=== PATIENT | female | born 2000 | race Two or more races ===

== ENCOUNTER 2021-05-25 20:15 | Observation (INO) | payer OTHER ==
[~2021-05-25] VITALS: Ht 154.9 cm; Wt 49.0 kg
== END 2021-05-25 22:00 | disposition home or self-care (01) ==
LOC: MLD 20:15
PROVIDERS: ADMIT Obstetrics & Gynecology; ATTEND Obstetrics & Gynecology
DX: O26.893 Other specified pregnancy related conditions, third trimester (principal); R10.9 Unspecified abdominal pain; Z3A.32 32 weeks gestation of pregnancy
CPT/HCPCS: G0378

== ENCOUNTER 2021-06-22 08:10 | Inpatient (IN) | payer OTHER ==
[~2021-06-22] VITALS: Ht 154.9 cm; Wt 49.9 kg
[2021-06-22 08:26] VITALS: BP 121/71
[2021-06-22] MEDS ORDERED: BETAMETH ACET/BETAMETH NA PH 30 MG/5 ML VIAL IM SCH (09:10)
[2021-06-22] MEDS ORDERED: PNV1TABL5 PO (09:16)
[2021-06-22] MEDS ORDERED: BETAMETH ACET/BETAMETH NA PH 30 MG/5 ML VIAL IM ONE (09:20)
[2021-06-22 09:46] LABS: BASOPHILS % (AUTO) 0.4 % (0.0-2.0); EOSINOPHILS % (AUTO) 0.6 % (0.0-4.0); HEMATOCRIT 31.9 % (36-48); HEMOGLOBIN 10.3 g/dL (12.0-16.0); LYMPHOCYTES # (AUTO) 1.1 K/uL (2.5-16.5); LYMPHOCYTES % (AUTO) 14.9 % (20.5-51.1); MEAN CORPUSCULAR HEMOGLOBIN 25 pg (27-31); MEAN CORPUSCULAR HGB CONC 32 g/dL (33-37); MEAN CORPUSCULAR VOLUME 77.7 fL (80-94); MONOCYTES # (AUTO) 0.6 K/uL (0.8-1.0); MONOCYTES % (AUTO) 7.2 % (1.7-9.3); NEUTROPHILS # (AUTO) 5.9 K/uL (1.8-7.7); NEUTROPHILS % (AUTO) 76.9 % (42.2-75.2); PLATELET COUNT (AUTO) 233 K/uL (140-450); RED BLOOD CELL COUNT(AUTO) 4.11 MIL/uL (4.20-5.40); RED CELL DISTRIBUTION WIDTH 14.4 % (11.6-13.7); WHITE BLOOD COUNT (AUTO) 7.7 K/uL (4.5-11.0)
[2021-06-22] MEDS ORDERED: LACTATED RINGERS 1,000 ML IV SCH (10:20)
[2021-06-22 10:22] LABS: POTASSIUM 3.6 mmol/L (3.5-5.1)
[2021-06-22 10:23] LABS: ANION GAP 11.8 (8-16); CARBON DIOXIDE 23.8 mmol/L (21-32)
[2021-06-22 10:24] LABS: CREATININE 0.4 mg/dL (0.6-1.3); TOTAL BILIRUBIN 0.7 mg/dL (0.0-1.0)
[2021-06-22 10:25] LABS: ALBUMIN 2.6 g/dL (3.4-5.0)
[2021-06-22 10:53] LABS: APPEARANCE,URINE CLEAR (CLEAR); BILIRUBIN,URINE NEGATIVE (NEGATIVE); BLOOD, URINE NEGATIVE (NEGATIVE); COLOR,URINE YELLOW (YELLOW); LEUKOCYTE ESTERASE ,URINE NEGATIVE (NEGATIVE); NITRITE, URINE NEGATIVE (NEGATIVE); PH,URINE 6.5 (5.0-9.0); UGLUCOSE NEGATIVE (NEGATIVE)
--- NOTE | 2021-06-22 12:57 | NUR ---
PATIENT HAS BEEN SCREENED AND CATEGORIZED LOW NUTRITION RISK. PATIENT WILL BE SEEN WITHIN 7 DAYS OF ADMISSION. 06/28/[address]
[2021-06-22 15:35] LABS: BARBITURATE, URINE NEGATIVE ng/ml (NEG <=200); BENZODIAZEPINE, URINE NEGATIVE ng/mL (NEG <=200); CANNABINOID, URINE NEGATIVE ng/mL (NEG <=50); COCAINE, URINE NEGATIVE ng/mL (NEG <=300); OPIATE, URINE NEGATIVE ng/mL (NEG <=2000); PHENCYCLIDINE SCREEN,URINE NEGATIVE ng/mL (NEG <=25)
[2021-06-22] MEDS ORDERED: MORPHINE SULFATE 4 MG/ML SYR ONE ×2 (20:43→23:15)
[2021-06-22] MEDS ORDERED: MORPHINE SULFATE 10 MG/ML VIAL ONE (21:14)
[2021-06-23] MEDS ORDERED: BETAMETH ACET/BETAMETH NA PH 30 MG/5 ML VIAL IM ONE (10:14)
== END 2021-06-23 16:59 | disposition home or self-care (01) | DRG 566 ==
LOC: MLD 08:10 → UNDOADMOB 08:26 → OBSVTOIN 09:17
PROVIDERS: ADMIT Obstetrics & Gynecology; ATTEND Obstetrics & Gynecology
DX: O60.03 Preterm labor without delivery, third trimester (principal); O98.113 Syphilis complicating pregnancy, third trimester; Z20.822 Contact with and (suspected) exposure to COVID-19; Z3A.36 36 weeks gestation of pregnancy; O36.5930 Maternal care for other known or suspected poor fetal growth, third trimester, not applicable or unspecified
CPT/HCPCS: 36415; 76805; 80053; 80305; 81003; 85025; 86592; 86886; 86900; 86901; 87653-90; J0702; J2270; Q0092

== ENCOUNTER 2021-06-29 10:03 | Inpatient (IN) | payer OTHER ==
[~2021-06-29] VITALS: Ht 157.5 cm; Wt 52.2 kg
[2021-06-29] MEDS: AMPICILLIN 1,000 MG in NACL 0.9% MINI-BAG PLUS 50 ML IV SCH (04:26)
[~2021-06-29 10:03] MED LIST: PNV1TABL5 PO
[2021-06-29 10:25] VITALS: BP 111/68
[2021-06-29] MEDS ORDERED: METHYLERGONOVINE 0.2 MG/ML AMP IM PRN (10:30)
[2021-06-29] MEDS ORDERED: AMPICILLIN 2,000 MG in NACL 0.9% MINI-BAG PLUS 100 ML IV SCH (10:30)
[2021-06-29] MEDS ORDERED: OXYTOCIN 10 UNITS/ML VIAL IM SCH (10:30)
[2021-06-29] MEDS ORDERED: LACTATED RINGERS 500 ML IV SCH (10:30)
[2021-06-29] MEDS ORDERED: CARBOPROST 250 MCG/ML AMP IM PRN (10:30)
[2021-06-29 11:36] LABS: BASOPHILS # (AUTO) 0.1 K/uL (0.00-0.22); BASOPHILS % (AUTO) 0.9 % (0.0-2.0); EOSINOPHILS % (AUTO) 0.4 % (0.0-4.0); HEMATOCRIT 30.3 % (36-48); HEMOGLOBIN 9.8 g/dL (12.0-16.0); LYMPHOCYTES # (AUTO) 1.4 K/uL (2.5-16.5); LYMPHOCYTES % (AUTO) 17.3 % (20.5-51.1); MEAN CORPUSCULAR HEMOGLOBIN 25 pg (27-31); MEAN CORPUSCULAR HGB CONC 32 g/dL (33-37); MEAN CORPUSCULAR VOLUME 77.3 fL (80-94); MONOCYTES # (AUTO) 0.5 K/uL (0.8-1.0); MONOCYTES % (AUTO) 6.1 % (1.7-9.3); NEUTROPHILS % (AUTO) 75.3 % (42.2-75.2); PLATELET COUNT (AUTO) 253 K/uL (140-450); RED BLOOD CELL COUNT(AUTO) 3.92 MIL/uL (4.20-5.40); RED CELL DISTRIBUTION WIDTH 14.8 % (11.6-13.7)
[2021-06-29] MEDS: LACTATED RINGERS 1,000 ML IV SCH ×2 (12:07→19:45)
[2021-06-29 12:23] LABS: PROTHROMBIN TIME 8.8 secs (10.8-13.4)
[2021-06-29 12:27] LABS: ALBUMIN 2.5 g/dL (3.4-5.0); ANION GAP 13.7 (8-16); CARBON DIOXIDE 20.5 mmol/L (21-32); CREATININE 0.7 mg/dL (0.6-1.3); POTASSIUM 4.2 mmol/L (3.5-5.1); TOTAL BILIRUBIN 0.5 mg/dL (0.0-1.0)
[2021-06-29 12:48] LABS: APPEARANCE,URINE CLEAR (CLEAR); BILIRUBIN,URINE NEGATIVE (NEGATIVE); BLOOD, URINE NEGATIVE (NEGATIVE); COLOR,URINE YELLOW (YELLOW); LEUKOCYTE ESTERASE ,URINE TRACE (NEGATIVE); NITRITE, URINE NEGATIVE (NEGATIVE); UGLUCOSE NEGATIVE (NEGATIVE)
[2021-06-29 13:03] LABS: BARBITURATE, URINE NEGATIVE ng/ml (NEG <=200); BENZODIAZEPINE, URINE NEGATIVE ng/mL (NEG <=200); CANNABINOID, URINE NEGATIVE ng/mL (NEG <=50); COCAINE, URINE NEGATIVE ng/mL (NEG <=300); OPIATE, URINE NEGATIVE ng/mL (NEG <=2000); PHENCYCLIDINE SCREEN,URINE NEGATIVE ng/mL (NEG <=25)
[2021-06-29] MEDS: MISOPROSTOL 25 MCG TAB VG SCH ×2 (13:05→20:46)
[2021-06-29 13:39] LABS: RBC,URINE 0-5 /HPF (0-5); WBC,URINE 0-5 /HPF (0-5)
[2021-06-29 13:40] LABS: CALCIUM OXALATE CRYSTALS,UR None Seen /HPF (None Seen); COARSE GRANULAR CASTS,URINE None Seen /LPF (None Seen); FINE GRANULAR CASTS,URINE None Seen /LPF (None Seen); HYALINE CASTS, URINE None Seen /LPF (None Seen); OTHER CASTS, URINE None Seen /LPF (None Seen); OTHER CRYSTALS,URINE None Seen /HPF (None Seen); RED BLOOD CELL CASTS,URINE None Seen /LPF (None Seen); TRICHOMONAS,URINE None Seen /HPF (None Seen); TRIPLE PHOSPHATE CRYSTAL,UR None Seen /HPF (None Seen); URIC ACID CRYSTALS,URINE None Seen /HPF (None Seen); URINE AMORPHOUS URATE None Seen /HPF (None Seen); WAXY CASTS,URINE None Seen /LPF (None Seen); YEAST,URINE None Seen /HPF (None Seen)
[2021-06-29] MEDS ORDERED: OXYTOCIN 20 UNITS in LACTATED RINGERS 1,000 ML IV PRN (20:05)
[2021-06-29] MEDS ORDERED: OXYTOCIN 20 UNITS/LR PREMIX 1,000 ML IV ONE (20:13)
[2021-06-29] MEDS ORDERED: AMPICILLIN 2,000 MG VIAL ONE (20:42)
[2021-06-29] MEDS ORDERED: ONDANSETRON 4 MG/2 ML VIAL ONE (21:01)
[2021-06-29] MEDS ORDERED: MORPHINE SULFATE 10 MG/ML VIAL ONE (21:02)
[2021-06-30] MEDS ORDERED: AMPICILLIN 1,000 MG VIAL ONE ×2 (00:33→04:21)
[2021-06-30] MEDS: AMPICILLIN 1,000 MG in NACL 0.9% MINI-BAG PLUS 50 ML IV SCH (00:40)
[2021-06-30] MEDS: LACTATED RINGERS 1,000 ML IV SCH (00:41)
[2021-06-30] MEDS ORDERED: MORPHINE SULFATE 10 MG/ML VIAL ONE (03:13)
[2021-06-30] MEDS ORDERED: ONDANSETRON 4 MG/2 ML VIAL ONE (03:13)
[2021-06-30 03:21] VITALS: BP 133/63
--- NOTE | 2021-06-30 07:01 | NUR ---
PATIENT HAS BEEN SCREENED AND CATEGORIZED LOW NUTRITION RISK. PATIENT WILL BE SEEN WITHIN 7 DAYS OF ADMISSION. 07/06/21 MCKENZIE STARK MS, RDN
[2021-06-30] MEDS ORDERED: BENZOCAINE/MENTHOL 20%-0.5% 60 GM CAN TP PRN (07:30)
[2021-06-30] MEDS ORDERED: OXYTOCIN 10 UNITS/ML VIAL IM PRN (07:30)
[2021-06-30] MEDS ORDERED: MEASLES, MUMPS, AND RUBELLA 1 VIAL SQVAC ONE (07:30)
[2021-06-30] MEDS ORDERED: METHYLERGONOVINE 0.2 MG TAB PO PRN (07:30)
[2021-06-30] MEDS ORDERED: METHYLERGONOVINE 0.2 MG/ML AMP IM PRN (07:30)
[2021-06-30] MEDS: oxyCODONE/APAP 5/325 MG 1 TAB TAB PO PRN (07:45)
[2021-06-30] MEDS ORDERED: CAMERA MC ONE (08:15)
[2021-06-30] MEDS: IBUPROFEN 800 MG TAB PO PRN (18:39)
[2021-07-01 06:37] LABS: HEMATOCRIT 28.2 % (36-48); HEMOGLOBIN 9.2 g/dL (12.0-16.0)
[2021-07-01] MEDS: IBUPROFEN 800 MG TAB PO PRN (07:06)
[2021-07-01] MEDS: oxyCODONE/APAP 5/325 MG 1 TAB TAB PO PRN ×2 (10:01→19:24)
[2021-07-02] MEDS: oxyCODONE/APAP 5/325 MG 1 TAB TAB PO PRN (02:44)
[2021-07-02] MEDS ORDERED: FERR325E14 PO (07:32)
== END 2021-07-02 14:20 | disposition home or self-care (01) | DRG 560 ==
LOC: MLD 10:03 → MFCC 06-30 10:30
PROVIDERS: ADMIT Obstetrics & Gynecology; ATTEND Obstetrics & Gynecology
PROC: 10E0XZZ Delivery of Products of Conception, External Approach (ICD-10-PCS; principal; 2021-06-30)
DX: O36.5930 Maternal care for other known or suspected poor fetal growth, third trimester, not applicable or unspecified (principal); Z37.0 Single live birth; O69.81X0 Labor and delivery complicated by cord around neck, without compression, not applicable or unspecified; O99.824 Streptococcus B carrier state complicating childbirth; Z20.822 Contact with and (suspected) exposure to COVID-19; O70.0 First degree perineal laceration during delivery; Z3A.37 37 weeks gestation of pregnancy
CPT/HCPCS: 36415; 59200; 59409; 76815; 80053; 80305; 81001; 85018; 85025; 85610; 85730; 86592; 86886; 86900; 86901; 90715; J0290; J2270; J2405; J2590; J7120; Q0092

== ENCOUNTER 2022-07-22 11:15 | Observation (INO) | payer OTHER ==
[~2022-07-22] VITALS: Ht 160 cm; Wt 49.9 kg
[2022-07-22 11:15] VITALS: BP 113/69
[~2022-07-22 11:15] MED LIST changes: +FERR325E14 PO
[2022-07-22] MEDS ORDERED: PRETAB PO (11:47)
[2022-07-22] MEDS ORDERED: NACL 0.9% 1,000 ML IV SCH (11:55)
[2022-07-22 12:28] LABS: APPEARANCE,URINE CLEAR (CLEAR); BILIRUBIN,URINE 1+ (NEGATIVE); BLOOD, URINE NEGATIVE (NEGATIVE); COLOR,URINE YELLOW (YELLOW); LEUKOCYTE ESTERASE ,URINE 1+ (NEGATIVE); NITRITE, URINE NEGATIVE (NEGATIVE); PH,URINE 7.5 (5.0-9.0); UGLUCOSE NEGATIVE (NEGATIVE)
[2022-07-22 12:46] LABS: RBC,URINE 0-5 /HPF (0-5)
[2022-07-22] MEDS ORDERED: ONDANSETRON 4 MG/2 ML VIAL IVP PRN (12:50)
[2022-07-22] MEDS ORDERED: NALBUPHINE 10 MG/ML AMP IVP PRN (12:50)
--- NOTE | 2022-07-22 15:04 | NUR ---
PATIENT HAS BEEN SCREENED AND CATEGORIZED LOW NUTRITION RISK. PATIENT WILL BE SEEN WITHIN 7 DAYS OF ADMISSION. 07/29/[address]
== END 2022-07-22 15:45 | disposition home or self-care (01) ==
LOC: MLD 11:15
PROVIDERS: ADMIT Obstetrics & Gynecology; ATTEND Obstetrics & Gynecology
DX: O26.892 Other specified pregnancy related conditions, second trimester (principal); R10.9 Unspecified abdominal pain; Z3A.25 25 weeks gestation of pregnancy
CPT/HCPCS: 81001; 87086; 96365; 96375; G0378; J0696; J2300; J2405; J7060